=== PATIENT | male | born 1955 | race Caucasian/White ===

== ENCOUNTER 2023-12-05 08:21 | Day surgery (SDC) | payer OTHER, BC ==
[2023-12-05] MEDS: NA CHLORIDE 0.9% 1,000 ML ONE (08:50)
[2023-12-05] MEDS ORDERED: propofoL 200 MG/20 ML VIAL IV ONE (10:11)
[2023-12-05] MEDS ORDERED: MIDAZOLAM HCL 2 MG/2 ML INJ ONE (10:11)
[2023-12-05] MEDS ORDERED: LIDOCAINE 1% MPF 5 ML VIAL ONE (10:11)
[2023-12-05] MEDS ORDERED: FENTANYL CITR 100 MCG/2 ML ONE (10:11)
[2023-12-05] MEDS ORDERED: ROCURONIUM 50 MG/5 ML VIAL IV ONE (10:12)
[2023-12-05] MEDS: CEFAZOLIN SODIUM 2 GM/VIAL ONE (10:17)
[2023-12-05] MEDS: BUPIVACAINE 0.25% PF 30 ML VIAL ONE (10:18)
[2023-12-05] MEDS ORDERED: ONDANSETRON 4 MG/2 ML VIAL ONE (10:52)
[2023-12-05] MEDS ORDERED: dexAMETHasone 4 MG/ML VIAL ONE (10:52)
[2023-12-05] MEDS ORDERED: EPHEDRINE SULF 50 MG/ML VIAL ONE (11:08)
[2023-12-05] MEDS ORDERED: GLYCOPYRROLATE 0.2 MG/ML SYR ONE (12:15)
--- NOTE | 2023-12-05 12:16 | P.OP ---
Preoperative diagnosis: Recurrent Ventral Incisional Incarcerated Hernia, LEFT forearm skin cancer Postoperative diagnosis: Recurrent Ventral Incisional Incarcerated Hernia, LEFT forearm skin cancer Primary procedure: Laparoscopic Ventral Hernia Repair with mesh Secondary procedure: Laparoscopic excision of prior placed mesh Other procedure(s): Wide local excision of LEFT Forearm Skin Lesion Anesthesia: GETA + Local Estimated blood loss: <10cc Specimen: LEFT Forearm skin lesion, abdominal wall mesh Findings: Rolled prior mesh, recurrent hernia, 5cm x 4cm LEFT forearm skin lesion Complications: None Implants: Bard Ventralis ST 15cm Round, Sorbafix x 60 tacks Transferred to: Recovery Room Condition: Good
[2023-12-05] MEDS: HYDROMORPHONE HCL 1 MG/ML INJ ONE ×2 (12:52→13:09)
[2023-12-05 13:24] VITALS: O2SAT 96
[2023-12-05] MEDS: HYDROCODONE/APAP 10/325 TAB ONE (14:05)
[2023-12-05 15:16] VITALS: BP 111/66; TEMP 97
--- NOTE | 2023-12-05 22:59 | OP ---
Date of Procedure: 12/05/2023 Surgeon: Margarito Kaiser MD, Preoperative Diagnoses: 1.Recurrent ventral incisional incarcerated abdominal hernia. 2.Left forearm skin cancer. Postoperative Diagnoses: 1.Recurrent ventral incisional incarcerated abdominal hernia. 2.Left forearm skin cancer. Procedures Performed: 1.Laparoscopic ventral incisional incarcerated hernia repair with mesh. 2.Laparoscopic excision of prior placed mesh. 3.Wide local excision of left forearm skin lesion. Anesthesia: General endotracheal plus local with 1% lidocaine with epinephrine. Estimated Blood Loss: Less than 2 cc. Specimen: Left forearm skin lesion and abdominal wall mesh. Findings: 1.Rolled prior mesh noted on the previously placed mesh, which was not in the normal anatomic positi on as it had rolling of the edges flipped over exposing and an additional area of herniation. 2.There was some rolled mesh from the previous mesh as there appeared to be separation of the layers of the mesh partially into the abdominal wall and edge of this was entrapped within the ab dominal wall. 3.There was obvious recurrent hernia in the midline. 4.There was a 4 cm ellipse of the left arm skin lesion removed for approximately 2 cm area of concer n of the left forearm where previous biopsy was performed. Complications: None. Implants: Bard Ventralight ST with Echo positioning System. 15 cm round mesh utilized and SorbaFix absorbable fixation tacks x60. Disposition: The patient was transported to the recovery room in good condition. Procedure In Detail: After informed consent was obtained, patient was brought to the operating room, prepped and draped in the usual sterile fashion. After adequate anesthesia was achieved, I placed a dditional anesthesia in the area of the left forearm down the subcutaneous tissues where an obvious s kin biopsy was performed previously. I demarcated the area based on adequate margins and made an ell ipse out elongating the proximal and distal ends to allow for adequate margin of the specimen. At th is point, I took down the skin all the way down to the subcutaneous fat using a 15 blade circumferent ially around elliptical fashion. At this point, electrocautery was used to remove the specimen. I p laced orientation sutures and sent off for pathologic examination. The area was copiously irrigated. Hemostasis easily achieved with electrocautery at this point and then the area was irrigated once a gain and partially reapproximated under no tension for the proximal and distal aspect leaving only a small opening in the middle, which was packed with Vashe soaked damp gauze and a sterile dressing gabriela kristina over top as well as being wrapped with Kerlix and Tonio over this. The patient tolerated the proce dure well without incident or complication at this point. I then turned my attention to the abdomina l portion of the operation. At this point, I anesthetized the area of the left upper quadrant down t o subcutaneous tissues. 5 mm 0 degree optical trocar was introduced in the abdomen without incident or complication. Insufflation was obtained to 15 mmHg at this time. There was no injury to vital st ructures upon entry into the abdomen. Additional trocar was placed in the left mid abdomen. This wa s similarly anesthetized, sharply incised, and a 12 mm trocar was placed under direct visualization w ithout complication. I then visualized the abdominal hernia in the midline portion extending in the supraumbilical position down where a previous incision was noted and the hernia mesh was noted to be significantly adhered to the intraabdominal structures including mostly adipose tissue. Intestinal l oops were nearby, but not directly involved. As such, adipose tissue was the direct concern at this point with adhesion of the mesh. In addition, the mesh appeared to have a breakage of it in the midp ortion of it with extension of granulation tissue up into the abdominal wall at that point with some foreign body giant cell reaction in appearance grossly. At this point, the mesh was removed using la paroscopic approach after it from the omental structures and taking down the omental incar ceration from the midline abdominal wall hernia. At this point, all anatomic structures returned to their normal anatomic position. I removed the mesh, placed in EndoCatch bag, removed through the lef t lower quadrant trocar and sent if off for pathologic examination ID only. At this point, I sized t he area appropriately and decided on a 15 cm round Bard Ventralight mesh with echo positioning system . Prior to this, however, I sewed all hernia defects closed using an Endo Stitch with 0 V-Loc suture in a running fashion. Good approximation of tissues. Therefore, imbricated the hernia sac at this point for abdominal closure. At this point, I brought in the 15 mm mesh to the 12 mm trocar, deploye d in the central portion separate stab incision, deployed the balloon deployment system and secured t o the anterior abdominal wall using a single crown of SorbaFix absorbable fixation tacks with good ap proximation of the tissues. At this point, I removed the balloon deployment system, found to be inta ct on the back table and placed a total of 60 screws in a double crown type orientation with good sunitha roximation of the mesh to the anterior abdominal wall at this point. I then turned my attention to t he left lower quadrant trocar site and closed it using a Davide-Choco suture passer with 0 Vicryl interrupted fashion with good approximation of tissue. The abdomen was completely desufflated under direct visualization without incident or complication. All skin incisions were then copiously irriga margarito, closed with a 4-0 Monocryl in a running fashion, Dermabond placed over top. The patient tolerat ed the procedure well without incident or complication, transferred to PACU in good condition. All c ounts were correct at the end of the case. YU/JOSUE Voice ID: [id number] Report ID: [id number]
--- NOTE | 2023-12-08 13:10 | EKG ---
Test Date: 2023-12-04 Test Time: 13:41:[address]: ZACHARY MEASUREMENT RESULTS: Intervals: Rate: 64 UT: 206 QRSD: 96 QT: 372 QTc: 383 [place]: P: 53 UT: 206 QRS: 58 T: 72 INTERPRETIVE STATEMENTS: Normal sinus rhythm Nonspecific ST and T wave abnormality Abnormal ECG Compared to ECG 10/04/2013 15:31:41 ST (T wave) deviation now present Electronically Signed On 12-08-23 12:59:26 CDT by Beny Smith
== END 2023-12-05 14:48 | disposition home or self-care (01) ==
LOC: OR 08:21
PROVIDERS: ATTEND Surgery
PROC: 0WUF4JZ Supplement Abdominal Wall with Synthetic Substitute, Percutaneous Endoscopic Approach (ICD-10-PCS; principal; 2023-12-05 10:15)
PROC: 0HBEXZZ Excision of Left Lower Arm Skin, External Approach (ICD-10-PCS; 2023-12-05 10:15)
DX: K43.0 Incisional hernia with obstruction, without gangrene (principal); L57.0 Actinic keratosis; L82.1 Other seborrheic keratosis; I10 Essential (primary) hypertension; E11.9 Type 2 diabetes mellitus without complications; E78.00 Pure hypercholesterolemia, unspecified; J45.909 Unspecified asthma, uncomplicated; Z85.828 Personal history of other malignant neoplasm of skin
CPT/HCPCS: 49623; 11606; 49616; 93005; 82947 ×2; 88302; 88305; J2704; J1100; J2001; J2250; J3010; J1170 ×2; J2405; J7030; 88300; 88304